=== PATIENT | female | born 1995 | race Caucasian/White ===

== ENCOUNTER 2018-10-31 15:49 | Outpatient (CLI) | payer OTHER ==
[2018-10-31 17:21] LABS: ADD UMIC YES; UR ASCORBIC ACID NEGATIVE (NEGATIVE); UR BACTERIA FEW /HPF (NONE SEEN); UR BILIRUBIN (Dip) NEGATIVE (NEGATIVE); UR BLOOD (Dip) NEGATIVE (NEGATIVE); UR CLARITY SLIGHTLY CLOUDY (CLEAR); UR COLOR AMBER (YELLOW); UR GLUCOSE (Dip) NEGATIVE (NEGATIVE); UR KETONES (Dip) NEGATIVE (NEGATIVE); UR LEUKOCYTE ESTERASE (Dip) 1+ Leu/ul (NEGATIVE); UR MUCUS MODERATE /HPF (NONE SEEN); UR NITRITE (Dip) NEGATIVE (NEGATIVE); UR NONSQUAMOUS EPITHELIAL CELL 1 /HPF (NONE SEEN); UR RBC 2 /HPF (0-5); UR SPECIFIC GRAVITY (Dip) 1.026 (1.003-1.030); UR SQUAMOUS EPITHELIAL CELL MODERATE /HPF (FEW); UR TOTAL PROTEIN (Dip) NEGATIVE (NEGATIVE); UR UROBILINOGEN (Dip) 2+ mg/dL (NEGATIVE); UR WBC 13 /HPF (0-5)
[2018-10-31 17:59] LABS: ADD MAN DIFF? NO
[2018-10-31 18:03] LABS: BASOPHILS % 0.2 % (0.0-2.0); EOSINOPHILS # 0.1 10^3/ul (0.0-0.5); EOSINOPHILS % 0.7 % (0.0-7.0); HEMATOCRIT 29.9 % (37.0-47.0); HEMOGLOBIN 9.4 g/dl (12.0-16.0); LYMPHOCYTES # 2.1 10^3/ul (0.8-2.9); LYMPHOCYTES % 24.4 % (15.0-51.0); MEAN CORPUSCULAR HEMOGLOBIN 24.3 pg (29.0-33.0); MEAN CORPUSCULAR HGB CONC 31.4 g/dl (32.0-37.0); MEAN CORPUSCULAR VOLUME 77.3 fl (82.0-101.0); MEAN PLATELET VOLUME 11.8 fl (7.4-10.4); MONOCYTE # 0.4 10^3/ul (0.3-0.9); MONOCYTES % 4.8 % (0.0-11.0); NEUTROPHIL # 6.1 10^3/ul (1.6-7.5); NEUTROPHILS % 69.6 % (39.0-77.0); PLATELET COUNT 344 10^3/UL (140-415); RED BLOOD COUNT 3.87 10^6/ul (4.20-5.40); RED CELL DISTRIBUTION WIDTH 13.8 % (11.5-14.5)
[2018-10-31 18:03] LABS: WHITE BLOOD COUNT 8.7 10^3/ul (4.8-10.8)
[2018-10-31 18:22] LABS: URIC ACID 3.8 mg/dl (3.1-7.9)
[2018-10-31 18:23] LABS: ALANINE AMINOTRANSFERASE 53 IU/L (13-69); ALBUMIN 3.3 g/dl (3.3-4.9); ALBUMIN/GLOBULIN RATIO 0.86; ALKALINE PHOSPHATASE 503 IU/L (42-121); ANION GAP 7 (5-13); ASPARTATE AMINO TRANSFERASE 38 IU/L (15-46); BILIRUBIN,INDIRECT 0.3 mg/dl (0-1.1); BILIRUBIN,TOTAL 0.3 mg/dl (0.2-1.3); BLOOD UREA NITROGEN 8 mg/dl (7-20); CALCIUM 9.1 mg/dl (8.4-10.2); CARBON DIOXIDE 21 mmol/L (21-31); CHLORIDE 108 mmol/L (97-110); CREATININE 0.41 mg/dl (0.44-1.00); Estimated GFR > 60 mL/min (>60); GLUCOSE 93 mg/dl (70-220); POTASSIUM 3.8 mmol/L (3.5-5.1); SODIUM 136 mmol/L (135-144); TOTAL PROTEIN 7.1 g/dl (6.1-8.1)
== END 2018-10-31 18:49 | disposition home or self-care (01) ==
LOC: OBT 15:49 → L-D 15:49 → OBT 18:49
DX: O62.9 Abnormality of forces of labor, unspecified (principal); Z3A.37 37 weeks gestation of pregnancy
CPT/HCPCS: 76815; 76818; 80053; 81001; 84560; 85025

== ENCOUNTER 2018-11-02 09:08 | Inpatient (IN) | payer OTHER ==
[2018-11-02] MEDS ORDERED: BUTORPHANOL 2 MG INJ IV (10:30)
[2018-11-02] MEDS ORDERED: IBUPROFEN 600 MG TAB PO (10:30)
[2018-11-02] MEDS ORDERED: METHYLERGONOVINE 0.2 MG INJ IM ×2 (10:30→21:00)
[2018-11-02] MEDS ORDERED: LIDOCAINE 1% (MPF) 30 ML INJ INJ (10:30)
[2018-11-02] MEDS ORDERED: CARBOPROST 250 MCG INJ IM ×2 (10:30→21:00)
[2018-11-02] MEDS ORDERED: OXYTOCIN 30 UNITS/LR 500 ML IV ×2 (10:30→21:00)
[2018-11-02 10:39] LABS: ADD MAN DIFF? NO
[2018-11-02 10:42] LABS: WHITE BLOOD COUNT 11.2 10^3/ul (4.8-10.8)
[2018-11-02 10:42] LABS: BASOPHILS % 0.3 % (0.0-2.0); EOSINOPHILS % 0.4 % (0.0-7.0); HEMATOCRIT 31.1 % (37.0-47.0); HEMOGLOBIN 9.7 g/dl (12.0-16.0); LYMPHOCYTES # 2.4 10^3/ul (0.8-2.9); LYMPHOCYTES % 21.8 % (15.0-51.0); MEAN CORPUSCULAR HEMOGLOBIN 24.4 pg (29.0-33.0); MEAN CORPUSCULAR HGB CONC 31.2 g/dl (32.0-37.0); MEAN CORPUSCULAR VOLUME 78.3 fl (82.0-101.0); MONOCYTE # 0.6 10^3/ul (0.3-0.9); MONOCYTES % 5.3 % (0.0-11.0); NEUTROPHILS % 71.9 % (39.0-77.0); PLATELET COUNT 352 10^3/UL (140-415); RED BLOOD COUNT 3.97 10^6/ul (4.20-5.40); RED CELL DISTRIBUTION WIDTH 13.8 % (11.5-14.5)
[2018-11-02 10:45] LABS: INR 0.81; PROTIME 11.3 Sec (11.9-14.9); PT RATIO 0.9
[2018-11-02 10:46] LABS: PARTIAL THROMBOPLASTIN TIME 29.9 Sec (23.0-35.0)
[2018-11-02] MEDS: LACTATED RINGER'S 1,000 ML IV ×2 (10:54→11:49)
[2018-11-02] MEDS ORDERED: FENTAnyl 2MCG/ML-ROPIV 0.2% 100 ML BAG EPI (11:00)
[2018-11-02] MEDS ORDERED: NALOXONE (0.4 MG/ML) INJ IV (11:00)
[2018-11-02 13:43] LABS: HEPATITIS B SURFACE ANTIGEN NEGATIVE (NEGATIVE)
[2018-11-02] MEDS: MISOPROSTOL 200 MCG TAB PR (18:54)
[2018-11-02] MEDS: OXYTOCIN 30 UNITS/LR 500 ML IV ×2 (19:00→19:27)
[2018-11-02] MEDS: CEFAZOLIN 1 GM/50 ML (PMX) 50 ML IVPB ×2 (19:21→19:59)
[2018-11-02] MEDS: LACTATED RINGER'S 1,000 ML IV* (20:58)
[2018-11-02] MEDS ORDERED: DIBUCAINE 1% 30 GM OINT TOP (21:00)
[2018-11-02] MEDS ORDERED: ACETAMINOPHEN 325 MG TAB PO (21:00)
[2018-11-02] MEDS ORDERED: MISOPROSTOL 200 MCG TAB PR (21:00)
[2018-11-02] MEDS ORDERED: CEFAZOLIN 1 GM/50 ML (PMX) 50 ML IVPB (22:00)
[2018-11-02] MEDS: SENNA/DOCUSATE NA (8.6MG/50MG) TAB PO (22:14)
[2018-11-02] MEDS: WITCH HAZEL/GLYCERIN PAD PR (22:14)
[2018-11-02] MEDS: BENZOCAINE 20% 56 ML SPRAY TOP (22:15)
[2018-11-02] MEDS: HYDROCODONE/APAP (5/325) TAB PO (22:36)
[2018-11-02 22:43] LABS: RAPID PLASMA REAGIN NONREACTIVE (NR)
[2018-11-02] MEDS: IBUPROFEN 600 MG TAB PO (23:40)
[2018-11-03] MEDS: LACTATED RINGER'S 1,000 ML IV* ×3 (04:04→21:17)
[2018-11-03] MEDS: CEFAZOLIN 1 GM/50 ML (PMX) 50 ML IVPB ×4 (04:04→22:00)
[2018-11-03] MEDS: IBUPROFEN 600 MG TAB PO ×3 (05:36→18:27)
[2018-11-03 06:27] LABS: ADD MAN DIFF? NO; BASOPHILS % 0.2 % (0.0-2.0); EOSINOPHILS % 0.2 % (0.0-7.0); HEMATOCRIT 24.1 % (37.0-47.0); HEMOGLOBIN 7.5 g/dl (12.0-16.0); LYMPHOCYTES # 3.1 10^3/ul (0.8-2.9); LYMPHOCYTES % 18.7 % (15.0-51.0); MEAN CORPUSCULAR HEMOGLOBIN 23.9 pg (29.0-33.0); MEAN CORPUSCULAR HGB CONC 31.1 g/dl (32.0-37.0); MEAN CORPUSCULAR VOLUME 76.8 fl (82.0-101.0); MEAN PLATELET VOLUME 11.6 fl (7.4-10.4); MONOCYTE # 1.1 10^3/ul (0.3-0.9); NEUTROPHILS % 73.5 % (39.0-77.0); PLATELET COUNT 259 10^3/UL (140-415); RED BLOOD COUNT 3.14 10^6/ul (4.20-5.40); RED CELL DISTRIBUTION WIDTH 14.2 % (11.5-14.5)
[2018-11-03 06:27] LABS: WHITE BLOOD COUNT 16.3 10^3/ul (4.8-10.8)
[2018-11-03] MEDS: SENNA/DOCUSATE NA (8.6MG/50MG) TAB PO ×2 (09:49→21:18)
[2018-11-03] MEDS: FERROUS SULFATE (EC) 325 MG TAB PO (21:18)
[2018-11-04] MEDS: IBUPROFEN 600 MG TAB PO ×4 (00:33→18:00)
[2018-11-04] MEDS: LACTATED RINGER'S 1,000 ML IV* ×2 (04:58→12:58)
[2018-11-04] MEDS: CEFAZOLIN 1 GM/50 ML (PMX) 50 ML IVPB (05:31)
[2018-11-04 08:29] LABS: ADD MAN DIFF? NO
[2018-11-04 08:37] LABS: WHITE BLOOD COUNT 9.4 10^3/ul (4.8-10.8)
[2018-11-04 08:37] LABS: BASOPHILS % 0.2 % (0.0-2.0); EOSINOPHILS # 0.1 10^3/ul (0.0-0.5); HEMOGLOBIN 7.1 g/dl (12.0-16.0); LYMPHOCYTES # 2.5 10^3/ul (0.8-2.9); LYMPHOCYTES % 26.9 % (15.0-51.0); MEAN CORPUSCULAR HGB CONC 30.9 g/dl (32.0-37.0); MEAN CORPUSCULAR VOLUME 77.7 fl (82.0-101.0); MEAN PLATELET VOLUME 12.1 fl (7.4-10.4); MONOCYTE # 0.5 10^3/ul (0.3-0.9); MONOCYTES % 5.7 % (0.0-11.0); NEUTROPHIL # 6.2 10^3/ul (1.6-7.5); NEUTROPHILS % 65.8 % (39.0-77.0); PLATELET COUNT 264 10^3/UL (140-415); RED BLOOD COUNT 2.96 10^6/ul (4.20-5.40); RED CELL DISTRIBUTION WIDTH 14.1 % (11.5-14.5)
[2018-11-04] MEDS: SENNA/DOCUSATE NA (8.6MG/50MG) TAB PO (08:41)
[2018-11-04] MEDS: FERROUS SULFATE (EC) 325 MG TAB PO (08:41)
[2018-11-04] MEDS: DIPHTH/TET/ACEL PERTUSS (ADULT) 0.5 ML VIAL IM* (09:00)
[2018-11-04] MEDS: WITCH HAZEL/GLYCERIN PAD PR (10:40)
== END 2018-11-04 18:40 | disposition home or self-care (01) | DRG 807 ==
LOC: OBT 09:08 → L-D 09:10 → OBT 09:25 → L-D 09:25 → PP1 20:50
PROVIDERS: Obstetrics & Gynecology
PROC: 10E0XZZ Delivery of Products of Conception, External Approach (ICD-10-PCS; principal; 2018-11-02)
PROC: 0KQM0ZZ Repair Perineum Muscle, Open Approach (ICD-10-PCS; 2018-11-02)
DX: O70.1 Second degree perineal laceration during delivery (principal); Z37.0 Single live birth; Z3A.37 37 weeks gestation of pregnancy
CPT/HCPCS: 62322; 85025; 85610; 85730; 86592; 86850; 86900; 86901; 87340; 99464